=== PATIENT | female | born 1990 | race Caucasian/White ===

== ENCOUNTER 2016-12-12 23:47 | Emergency (ER) | payer MEDICAID ==
[~2016-12-12] VITALS: Ht 154.9 cm; Wt 55.6 kg
[~2016-12-12 23:47] MED LIST: IBUP-1222 PO; OXYC-302 PO
[2016-12-12 23:49] VITALS: BP 129/72
[2016-12-13 00:07] LABS: HCG UR LOT HCG7030192
[2016-12-13 00:16] LABS: HCG UR OBC PASS
== END 2016-12-13 01:00 | disposition left against medical advice (07) ==
LOC: ED 23:59
DX: Z32.01 Encounter for pregnancy test, result positive (principal)
CPT/HCPCS: 81003; 81025; 99284